=== PATIENT | female | born 1945 | race Caucasian/White ===

== ENCOUNTER 2017-06-16 12:10 | Inpatient (IN) | payer BC, MEDICARE ==
[~2017-06-16] VITALS: Ht 165.1 cm; Wt 59.0 kg
--- NOTE | 2017-06-17 06:42 | HP ---
ADMIT: 06/16/2017 RM/LOC: 405 [facility] MR#: [id number] [facility] [address] [place] [id number] CRISTOFER PAINTING [address] [facility] [place] [address] History and Physical SEX: F AGE: 71 : 1945 DATE OF SERVICE: 06/16/2017 CHIEF COMPLAINT AND HISTORY OF PRESENT ILLNESS: Cristofer Painting was seen in our office and then admitted to acute care. She has been complaining of feeling achy all over with fever and chills at home and some dysuria. She has had no nausea or vomiting. Some low back pain, left greater than right. She has had no diarrhea. She has had a fever last night at home was 103. Her temp in our office was 100.8, and she was somewhat ill in appearance. This is in the background of a patient who was seen and treated for urinary tract infection in early May with Cipro and then after a side effect from Cipro switched to Keflex. Cultures at that time showed no significant growth. She has chronic obstructive pulmonary disease, but is not having any increased cough or shortness of breath. She had a urine in the office, but it was contaminated, but the urine done at the hospital shows positive nitrites, clumps of wbc's, and some bacteria. White count is elevated at 12,500 and 82% neutrophils. Her heart rate in the office was in the mid 120s and once again, she appeared somewhat ill. She is admitted for febrile urinary tract infection and sepsis markers pending. PAST MEDICAL HISTORY: It looks like the last time she was hospitalized in 2010 with discharge diagnosis of chest pain of gastric origin, gastroesophageal reflux. Chronic illnesses include hypertension, chronic obstructive pulmonary disease, anxiety disorder, degenerative arthritis, nicotine dependency, and esophageal reflux. PAST SURGICAL HISTORY: Cholecystectomy, appendectomy, hysterectomy, and neck surgery for degenerative disk disease. FAMILY HISTORY: Positive for diabetes, hypertension, coronary artery disease, an unspecified type of cancer in first-degree relatives. SOCIAL HISTORY: She is . I believe, she lives with her son who brought her to the office. She is a lifelong smoker. No alcohol. ALLERGIES: NONE. MEDICATIONS: 1. She takes occasional Ativan. 2. Hydrochlorothiazide 25 mg once a day. 3. Potassium chloride 20 mEq t.i.d. 4. Multivitamin one daily. 5. Omeprazole 40 mg once a day. 6. Carafate 1 g q.i.d. 7. Cartia XT 360 one daily. 8. Tramadol 50 mg q.6 hours p.r.n. REVIEW OF SYSTEMS: CONSTITUTIONAL: Chills with fever. Decreased appetite. GI: No nausea, vomiting. RESPIRATORY: She has chronic obstructive pulmonary disease but no worsening ADMIT: 06/16/2017 RM/LOC: 405 [facility] MR#: [id number] [id number] CRISTOFER PAINTING [address] [place] [address] History and Physical SEX: F AGE: 71 : 1945 of her respiratory status. No increased cough or phlegm production. CARDIOVASCULAR: No chest pressure. GASTROINTESTINAL: Has reflux, but the reflux symptoms are stable. No diarrhea. GENITOURINARY: She has some lower abdominal pain and some dysuria. No change in urinary pattern. EARS, NOSE, AND THROAT: No sore throat or ear changes. EYES: No vision changes. MUSCLE, BONE, AND JOINT: She has chronic degenerative disk disease of her neck, possibly her lumbar spine. NEURO: No motor or sensory disturbances. PSYCH: Her mental illness has been stable. PHYSICAL EXAMINATION: GENERAL: This is a somewhat ill-appearing 71-year-old female who appears older than her stated age. VITAL SIGNS: On admission 101.9; pulse 104, in our office her pulses in the 120s; respirations 18; BP 151/80, in our office is 124/60; O2 saturation 96%. EARS, NOSE, AND THROAT: TMs are clear. No nasopharyngeal discharge. Oropharynx is not red. No purulent drainage. EYES: Pupils equal. Sclerae are clear. NECK: No venous distention. No neck masses or bruits. HEART: Regular rhythm. I do not hear a murmur. LUNGS: Diminished throughout, but clear throughout. Normal respiratory effort at this time. ABDOMEN: She is rather diffusely tender, but it is mildly tender. She does not localize anywhere. I do not perceive any guarding or rebound. Bowel sounds are active. There are no groin masses or lymphadenopathy or hernias. BACK: She has minimal tenderness, left mid back. Right back nontender. She has no pain with back movement. EXTREMITIES: Upper extremities, no gross abnormalities. Lower extremities, no edema or gross abnormalities. I can feel faint pulses in her feet. SKIN: No rashes. NEURO: Grossly intact. ADMIT: 06/16/2017 RM/LOC: 405 [facility] MR#: [id number] [id number] CRIST[address]ER PAINTING [address] [place] [address] History and Physical SEX: F AGE: 71 : 1945 PSYCH: She is calm. IMPRESSION: 1. Acute febrile urinary tract infection. 2. Probable sepsis, but doubt severe sepsis or shock. 3. She is probably volume depleted. 4. Hypokalemia. DISCUSSION: We have given already volume infusions. We will start cefepime. Blood and urine cultures pending. Other sepsis markers including procalcitonin are pending. Joseph Sanders MD/ byron JOB #: [id number] CC: Sunil Pruett, Attending Physician Sunil Pruett, Family Physician
[2017-06-21] MEDS ORDERED: KLOR-CON M2020 ME1 PO (17:35)
[2017-06-21] MEDS ORDERED: ULTRAM DPS50 MG PO (17:35)
[2017-06-21] MEDS ORDERED: KEFLEX500 MG PO (17:36)
[2017-06-21] MEDS ORDERED: CARAFATE DPS1 GM PO (17:36)
[2017-06-21] MEDS ORDERED: CARDIZEM CD360 MG PO (17:36)
[2017-06-21] MEDS ORDERED: NICOTINE PATCH1 EAC1 TD (17:37)
[2017-06-21] MEDS ORDERED: PROTONIX40 MG PO (17:37)
[2017-06-21] MEDS ORDERED: DULCOLAX-DPS10 MG PR (17:37)
[2017-06-21] MEDS ORDERED: MAALOX DPS30 ML PO (17:38)
[2017-06-21] MEDS ORDERED: COLACE-DPS100 MG PO (17:38)
[2017-06-21] MEDS ORDERED: TYLENOL DPS325 MG PO (17:38)
== END 2017-06-20 11:12 | disposition home or self-care (01) | DRG 872 ==
LOC: WOR 12:10 → 4PCU 12:10
PROVIDERS: ADMIT Family Medicine
DX: A41.9 Sepsis, unspecified organism (principal); J44.9 Chronic obstructive pulmonary disease, unspecified; D64.9 Anemia, unspecified; N10 Acute pyelonephritis; B96.20 Unspecified Escherichia coli [E. coli] as the cause of diseases classified elsewhere; K21.9 Gastro-esophageal reflux disease without esophagitis; I10 Essential (primary) hypertension; E86.9 Volume depletion, unspecified; E87.6 Hypokalemia; M50.30 Other cervical disc degeneration, unspecified cervical region; F41.9 Anxiety disorder, unspecified; M19.90 Unspecified osteoarthritis, unspecified site; F17.200 Nicotine dependence, unspecified, uncomplicated; Z82.49 Family history of ischemic heart disease and other diseases of the circulatory system